=== PATIENT | female | born 1940 | race Two or more races ===

== ENCOUNTER 2016-08-14 11:46 | Inpatient (IN) | payer OTHER ==
--- NOTE | 2016-08-14 12:20 | PDOC ---
History of Present Illness <Sonny Kang - Last Filed: 08/14/16 15:49> - General History Source: Patient Exam Limitations: No Limitations - History of Present Illness Initial Comments: 08/14/16 13:31 The patient is a 75 year old female, with a significant past medical history of hypertension, hyperlipidemia, and breast cancer(left breast), who presents to the emergency department complaining of numbness and weakness to her left leg and left arm, and decreased appetite since yesterday. The patient describes her headache as an intermittent throbbing, sharp headache localized to the right side. The patient reports her numbness and weakness to her left side began yesterday and have not resolved. Patient states when she woke up this morning, she felt as if her head was out of balance. She reports calling her son, out of concern that her blood pressure was elevated. The patients son reports taking her blood pressure after arrival, which read 200/95. The patient reports paresthesias to her left arm, but denies chest pain, shortness of breath, diaphoresis, palpitations, lower extremity edema, or changes in vision. Patient reports nausea, but denies any abdominal pain, vomiting, diarrhea, or constipation. Patient reports she is typically able to ambulate normally. The patient denies any fever, chills, cough, or dizziness. The patient is on aspirin. Allergies: None reported. Past Surgical History: Left partial mastectomy, Left axillary dissection Social History: Non-smoker. Denies alcohol or drug use. PCP: Dr. Oleary <Dima Whaley - Last Filed: 08/14/16 15:51> - General Chief Complaint: Blood Pressure Problem Stated Complaint: HIGH BLOOD PRESSURE PROBLEM Time Seen by Provider: 08/14/16 12:14 NIH Stroke Scale - Last Known Well Date/Time & Onset Date Last Known Well: 08/13/16 Time Last Known Well: 16:00 - Initial Evaluation Level of consciousness: Alert Ask patient the month and their age: Answers both correctly Ask patient to open & close eyes; make fist and let go: Obeys both correctly Best gaze (horizontal eye movement): Normal Visual field testing: No visual field loss Facial paresis (Show teeth/raise eyebrows/close eyes tight): Normal symmetrical movement Motor Function: Left Arm: Normal Motor Function: Right Arm: Normal (extends arm 90 (or 45) degrees for 10 seconds without drift Motor Function: Left Leg: Drift Motor Function: Right Leg: Normal (extends leg 30 degrees for 5 seconds without drift) Limb Ataxia: No ataxia Sensory(Use pinprick test arms,legs,trunk,face/side to side): Normal Best language (Describe picture, name items, read sentences): No Aphasia Dysarthria (read several words): Normal articulation Extinction and Inattention: No abnormality - Total Score NIH Stroke Scale Score: 1 <Sonny Kang - Last Filed: 08/14/16 15:49> Past History - Past Medical History Anemia: No Asthma: No Cancer: Yes (left breast) Cardiac Disorders: No CVA: No COPD: Yes CHF: No Dementia: No Diabetes: No GI Disorders: No Disorders: No HTN: Yes Hypercholesterolemia: Yes Liver Disease: No Seizures: No Thyroid Disease: No - Surgical History Abdominal Surgery: No Appendectomy: No Cardiac Surgery: No Cholecystectomy: No Lung Surgery: No Neurologic Surgery: No Orthopedic Surgery: No - Psycho/Social/Smoking Cessation Hx Suicidal Ideation: No Smoking Status: No Smoking History: Never smoked Have you smoked in the past 12 months: No Number of Cigarettes Smoked Daily: 0 Hx Alcohol Use: No Drug/Substance Use Hx: No Substance Use Type: None Hx Substance Use Treatment: No <Sonny Kang - Last Filed: 08/14/16 15:49> <Dima Whaley - Last Filed: 08/14/16 15:51> - Past Medical History Allergies/Adverse Reactions: Allergies Allergy/AdvReac Type Severity Reaction Status Date / Time No Known Allergies Allergy Verified 08/14/16 12:02 Home Medications: Ambulatory Orders Amlodipine/Valsartan [Exforge 5-160 mg Tablet] 1 tab PO DAILY #0 tablet Aspirin [Aspir 81] 81 mg PO DAILY #0 tablet. 09/01/11 Calcium 250Mg/Vit-D 125 Units [Oscal 250 mg+D -] 1 each PO BID #0 tablet Rosuvastatin Calcium [Crestor] 10 mg PO DAILY #0 tablet 09/01/11 Nebivolol [Bystolic -] 5 mg PO DAILY 08/14/16 Review of Systems - Review of Systems Able to Perform ROS?: Yes Comments:: 08/14/16 13:33 CONSTITUTIONAL: Present: +loss of appetite, +elevated blood pressure Absent: fever, chills, diaphoresis, generalized weakness, malaise HEENT: Absent: rhinorrhea, nasal congestion, throat pain, throat swelling, difficulty swallowing, mouth swelling, ear pain, eye pain, visual Changes CARDIOVASCULAR: Absent: chest pain, syncope, palpitations, irregular heart rate, lightheadedness , peripheral edema RESPIRATORY: Absent: cough, shortness of breath, dyspnea with exertion, orthopnea, wheezing, stridor, hemoptysis GASTROINTESTINAL: Absent: abdominal pain, abdominal distension, nausea, vomiting, diarrhea, constipation, melena, hematochezia GENITOURINARY: Absent: dysuria, frequency, urgency, hesitancy, hematuria, flank pain, genital pain MUSCULOSKELETAL: Absent: myalgia, arthralgia, joint swelling SKIN: Absent: rash, itching, pallor HEMATOLOGIC/IMMUNOLOGIC: Absent: easy bleeding, easy bruising, lymphadenopathy, frequent infections ENDOCRINE: Absent: unexplained weight gain, unexplained weight loss, heat intolerance, cold intolerance NEUROLOGIC: Present: +paresthesias to the left arm, +numbness to he left arm and left leg, + headache Absent: focal weakness, dizziness, unsteady gait, seizure, mental status changes , bladder or bowel incontinence PSYCHIATRIC: Absent: anxiety, depression, suicidal or homicidal ideation, hallucinations. <Dima Whaley - Last Filed: 08/14/16 15:51> *Physical Exam - Vital Signs Last Vital Signs Temp Pulse Resp BP Pulse Ox 98.2 F 57 L 18 153/93 97 08/14/16 12:02 08/14/16 12:02 08/14/16 12:02 08/14/16 12:02 08/14/16 12:02 <Sonny Kang - Last Filed: 08/14/16 15:49> - Vital Signs Last Vital Signs Temp Pulse Resp BP Pulse Ox 98.2 F 57 L 18 153/93 97 08/14/16 12:02 08/14/16 12:02 08/14/16 12:02 08/14/16 12:02 08/14/16 12:02 - Physical Exam Comments: 08/14/16 13:32 GENERAL: Well developed, well nourished. Awake and alert. No acute distress. HEENT: Normocephalic, atraumatic. PERRLA, EOMI. No conjunctival pallor. Sclera are non- icteric. Moist mucous membranes. Oropharynx is clear. NECK: Supple. Full ROM. No JVD. Carotid pulses 2+ and symmetric, without bruits. No thyromegaly. No lymphadenopathy. CARDIOVASCULAR: Regular rate and rhythm. No murmurs, rubs, or gallops. Distal pulses are 2+ and symmetric. PULMONARY: No evidence of respiratory distress. Lungs clear to auscultation bilaterally. No wheezing, rales or rhonchi. ABDOMINAL: Soft. Non-tender. Non-distended. No rebound or guarding. No organomegaly. Normoactive bowel sounds. MUSCULOSKELETAL Normal range of motion at all joints. No bony deformities or tenderness. No CVA tenderness. EXTREMITIES: No cyanosis. No clubbing. No edema. No calf tenderness. SKIN: Warm and dry. Normal capillary refill. No rashes. No jaundice. NEUROLOGICAL: 4+ strength in the left lower extremity. Alert, awake, appropriate. Cranial nerves 2-12 intact. No deficits to light touch and temperature in face, upper extremities and lower extremities. No motor deficits in the in face, upper extremities. Normoreflexic in the upper and lower extremities. Normal speech. Toes are downgoing bilaterally. Gait is normal without ataxia. PSYCHIATRIC: Cooperative. Good eye contact. Appropriate mood and affect. <Dima Whaley - Last Filed: 08/14/16 15:51> Heart Score/ECG Review - ECG Intrepretation Comment:: 08/14/16 15:01 Normal sinus rhythm at 54, left axis deviation, left anterior hemiblock, late R- wave progression, no ST changes <Sonny Kang - Last Filed: 08/14/16 15:49> ED Treatment Course - LABORATORY CBC & Chemistry Diagram: 08/14/16 13:25 08/14/16 13:25 <Sonny Kang - Last Filed: 08/14/16 15:49> - LABORATORY CBC & Chemistry Diagram: 08/14/16 13:25 08/14/16 13:25 - RADIOLOGY Radiograph Interpretation: 08/14/16 14:04 EXAM: CXR INTERPRETED BY: Dr. Brock REVIEWED BY: Dr. Kang IMPRESSION: No evidence of pneumonia, CHF, pneumothorax. Limited evaluation of the lung parenchyma in the left retrocardiac region. EXAM: Head CT INTERPRETED BY: Dr. Brock REVIEWED BY: Dr. Kang IMPRESSION: No evidence of acute intracranial hemorrhage, edema, midline shift, mass effect, or skull fracture. No CT evidence of acute territorial infarction. <Dima Whaley - Last Filed: 08/14/16 15:51> Medical Decision Making - Medical Decision Making 08/14/16 12:55 The patient is well appearing and in nbo acute distress Symptoms onset yesterday at approximately 4pm She is not a candidate for TPA because she is well outside the 3 and 4.5 hour window NIHSS 1 She has mild LLE weakness and drift Will obtain labs, CT head 08/14/16 15:[address] reading no acute intracranial pathology Will admit for stroke work-up Clinical impression: Focal weakness Possible CVA Case discussed in detail with admitting provider including history, physical exam and ancillary studies. Admitting physician has assumed care for the patient, will follow all pending diagnostics and will complete the evaluation and treatment. A portion of this note was documented by scribe services under my direction. I have reviewed the details of the note, within reason, and agree with the documentation with the following case summary and management plan written by me. 08/14/16 15:49 <Sonny Kang - Last Filed: 08/14/16 15:49> - Medical Decision Making 08/14/16 15:41 First call placed to Dr. Heard at 15:40. Awaiting call back. <Dima Whaley - Last Filed: 08/14/16 15:51> *DC/Admit/Observation/Transfer - Discharge Dispostion Admit: Yes <Sonny Kang - Last Filed: 08/14/16 15:49> - Attestations Scribe Attestion: 08/14/16 13:37 Documentation prepared by Dima Whaley, acting as director medical surgical for Sonny Kang MD. <Dima Whaley - Last Filed: 08/14/16 15:51> Diagnosis at time of Disposition: Weakness - Referrals Referrals: Garrett Oleary [Primary Care Provider] -
[2016-08-14] MEDS: SODIUM CHLORIDE 1,000 ML IV SCH ×2 (13:05→20:27)
[2016-08-14 13:35] LABS: BASOPHIL 1.1 % (0-2.0); EOSINOPHIL 2.4 % (0-4.5); MCH 29.1 pg (25.7-33.7); MCHC 32.4 g/dl (32.0-36.0); MEAN CELL VOLUME 89.9 fl (80-96); MEAN PLT VOLUME 8.6 fl (7.5-11.1); NEUTROPHILS 39.9 % (42.8-82.8); PLATELET COUNT 195 K/MM3 (134-434); RDW 14.7 % (11.6-15.6); WHITE BLOOD COUNT 4.1 K/mm3 (4.0-10.0)
[2016-08-14 13:46] LABS: URINE APPEARANCE CLEAR; URINE BILIRUBIN NEGATIVE (NEGATIVE); URINE BLOOD NEGATIVE (NEGATIVE); URINE COLOR COLORLESS; URINE GLUCOSE (UA) NEGATIVE (NEGATIVE); URINE KETONE NEGATIVE (NEGATIVE); URINE LEUK ESTERASE NEGATIVE (NEGATIVE); URINE NITRITE NEGATIVE (NEGATIVE); URINE PROTEIN NEGATIVE (NEGATIVE); URINE UROBILINOGEN NEGATIVE E.U./dl (0.2-1.0)
[2016-08-14 14:04] LABS: INR 1.04 (0.82-1.09); PROTHROMBIN TIME (PATIENT) 11.5 SEC (9.98-11.88)
[2016-08-14 14:26] LABS: ALBUMIN 3.6 g/dl (3.4-5.0); ANION GAP 4 (8-16); BILIRUBIN,TOTAL 0.3 mg/dL (0.2-1.0); CALCIUM 8.9 mg/dL (8.5-10.1); CO2 29 mmol/L (21-32); CREATININE 0.9 mg/dL (0.55-1.02); GLUCOSE,RANDOM 111 mg/dL (74-106); LDL CHOLESTEROL (ONLY SJRH) 41 mg/dL (5-100); SGOT/AST 22 U/L (15-37); SGPT/ALT 32 U/L (12-78)
[2016-08-14 14:28] LABS: ALK PHOS 69 U/L (45-117); TOT PROT 7.8 g/dl (6.4-8.2); TROPONIN I < 0.02 ng/ml (0.00-0.05)
[2016-08-14 14:30] LABS: CHOLESTEROL 100 mg/dL (50-200)
[2016-08-14] MEDS ORDERED: ASPIRIN 81 MG CHEWABLE TABLETS PO ONE (15:49)
[2016-08-14] MEDS ORDERED: ASPIRIN 81 MG CHEWABLE TABLETS ONE (16:07)
[2016-08-14 19:03] VITALS: BMI 30.5
--- NOTE | 2016-08-14 21:45 | CONSULT ---
Consult - text type - Consultation Consultation Note: NEUROLOGY CONSULTATION is greatly appreciated: This 75 yo RH woman lives with her sons and their families. Her daughter is at the bedside and aides in translation from Nepalese. PMH sig for HTN, High CVhol and left breast Ca. Maintained on amlodipine, valsartan, ASA, crestor and nebivolol. Episodic headaches in the past usually Right temporal throbbing. Daughter also has headaches. The patient has had right sided headaches, waxing and waning over the last three days. Yesterday, around 3 PM, the patient developed a typical Right sided headache with numbness of the ledt arm but went about her affairs, When the symptoms recurred this morning and also involved the left leg she came to the ED where BP was noted to be 200/95. No change in gait or vision. Now, headache and paresthesiae have resolved CT of head (reviewed by me): Mild atrophy. Probably normal for age. JOSEE: BP 140/80. Cor reg 76. No head trauma. No bruits. NEUROLOGICAL: MS/speech: Normal CN II-XII: Normal Motor: No drift or tremor. Normal strength, tone and bulk. Normal reflexes. Toes downgoing Coord: No FTN dystaxia Sensory: Normal. Romberg neg Gait: Normal IMP: Normal Neurological Exam. Most likely Complicated migraine headache. Cannot exclude hypertensive headache and lacunar infarction. SUGGEST: Continue BP control especially nebivolol which is a migraine prophylactic. Encourage compliance. Continue ASA. MRI of brain and MR angio of the carotids (or duplex doppler). Check ESR, CRP to R/O temporal arteritis. Thank you very much, Sergey Fajardo MD
[2016-08-14] MEDS: CALCIUM 250MG/VIT-D 125 UNITS 1 COMBO TABLET PO SCH (21:49)
[2016-08-14 22:51] LABS: TROPONIN I < 0.02 ng/ml (0.00-0.05)
[2016-08-15 08:01] LABS: BASOPHIL 1.4 % (0-2.0); EOSINOPHIL 3.1 % (0-4.5); MCH 29.5 pg (25.7-33.7); MCHC 33.1 g/dl (32.0-36.0); MEAN PLT VOLUME 9.1 fl (7.5-11.1); NEUTROPHILS 36.3 % (42.8-82.8); PLATELET COUNT 194 K/MM3 (134-434); RDW 14.6 % (11.6-15.6)
[2016-08-15 08:31] LABS: ALBUMIN 3.3 g/dl (3.4-5.0); ALK PHOS 64 U/L (45-117); ANION GAP 5 (8-16); BILIRUBIN,TOTAL 0.4 mg/dL (0.2-1.0); CALCIUM 8.6 mg/dL (8.5-10.1); CO2 28 mmol/L (21-32); CREATININE 0.9 mg/dL (0.55-1.02); GLUCOSE,RANDOM 104 mg/dL (74-106); SGOT/AST 22 U/L (15-37); SGPT/ALT 31 U/L (12-78); TOT PROT 7.2 g/dl (6.4-8.2); TROPONIN I < 0.02 ng/ml (0.00-0.05)
[2016-08-15] MEDS ORDERED: PT OWN MED DRAWER 7, Y5N ONE (08:31)
[2016-08-15] MEDS: VALSARTAN 160 MG TABLET (UD) PO SCH (09:08)
[2016-08-15] MEDS: NEBIVOLOL 5 MG TABLET (FP) PO SCH (09:09)
[2016-08-15] MEDS: CALCIUM 250MG/VIT-D 125 UNITS 1 COMBO TABLET PO SCH ×2 (09:09→21:23)
[2016-08-15] MEDS: ASPIRIN COATED 81 MG TABLET.EC PO SCH (09:09)
[2016-08-15] MEDS: amLODIPine BESYLATE 5 MG TABLET (FP) PO SCH (09:09)
[2016-08-15] MEDS ORDERED: PATIENT'S OWN MEDICATION (NON-FORMULARY) (Amlodipine/Valsartan [Exforge 5-160 Mg Tablet] 1 PO SCH (10:00)
--- NOTE | 2016-08-15 10:02 | EKG ---
Test Reason : Blood Pressure : / mmHG Vent. Rate : 053 BPM Atrial Rate : 053 BPM P-R Int : 186 ms QRS Dur : 090 ms QT Int : 424 ms P-R-T Axes : 033 -29 027 degrees QTc Int : 397 ms SINUS BRADYCARDIA POOR R WAVE PROGRESSION Confirmed by NATHANAEL ERNANDEZ MD ([id number]) on 08/15/2016 10:02:19 AM Referred By: Confirmed By:NATHANAEL ERNANDEZ MD
--- NOTE | 2016-08-15 16:13 | HP ---
Admitting History and Physical - Primary Care Physician PCP: Scarlett Heard - Admission Chief Complaint: R/O ACUTE CVA History of Present Illness: The patient is a 75 year old female, with a significant past medical history of hypertension, hyperlipidemia, and breast cancer(left breast), who presents to the emergency department complaining of numbness and weakness to her left leg and left arm, and decreased appetite since yesterday. The patient describes her headache as an intermittent throbbing, sharp headache localized to the right side. The patient reports her numbness and weakness to her left side began yesterday and have not resolved. Patient states when she woke up this morning, she felt as if her head was out of balance. She reports calling her son, out of concern that her blood pressure was elevated. The patients son reports taking her blood pressure after arrival, which read 200/95. The patient reports paresthesias to her left arm, but denies chest pain, shortness of breath, diaphoresis, palpitations, lower extremity edema, or changes in vision. Patient reports nausea, but denies any abdominal pain, vomiting, diarrhea, or constipation. Patient reports she is typically able to ambulate normally. The patient denies any fever, chills, cough, or dizziness. The patient is on aspirin. History Source: Patient, Medical Record - Past Medical History ...: No - Smoking History Smoking history: Never smoked Have you smoked in the past 12 months: No Aproximately how many cigarettes per day: 0 - Alcohol/Substance Use Hx Alcohol Use: No Home Medications - Allergies Allergies/Adverse Reactions: Allergies Allergy/AdvReac Type Severity Reaction Status Date / Time No Known Allergies Allergy Verified 08/14/16 12:02 - Home Medications Home Medications: Ambulatory Orders Amlodipine/Valsartan [Exforge 5-160 mg Tablet] 1 tab PO DAILY #0 tablet Aspirin [Aspir 81] 81 mg PO DAILY #0 tablet. 09/01/11 Calcium 250Mg/Vit-D 125 Units [Oscal 250 mg+D -] 1 each PO BID #0 tablet Rosuvastatin Calcium [Crestor] 10 mg PO DAILY #0 tablet 09/01/11 Nebivolol [Bystolic -] 5 mg PO DAILY 08/14/16 Review of Systems - Review of Systems Constitutional: reports: Weakness Eyes: reports: Blurred Vision HENT: reports: No Symptoms Neck: reports: No Symptoms Cardiovascular: reports: No Symptoms Respiratory: reports: No Symptoms Gastrointestinal: reports: No Symptoms Genitourinary: reports: No Symptoms Musculoskeletal: reports: Muscle Weakness Integumentary: reports: No Symptoms Neurological: reports: Parasthesia, Pre-Existing Deficit, Weakness Endocrine: reports: No Symptoms Hematology/Lymphatic: reports: No Symptoms Psychiatric: reports: No Symptoms Physical Examination Vital Signs: Vital Signs Temperature 98 F 08/15/16 15:33 Pulse Rate 51 L 08/15/16 15:33 Respiratory Rate 18 08/15/16 15:33 Blood Pressure 182/67 08/15/16 15:33 O2 Sat by Pulse Oximetry (%) 96 08/15/16 09:00 Constitutional: Yes: Mild Distress Eyes: Yes: WNL HENT: Yes: WNL Neck: Yes: WNL Cardiovascular: Yes: WNL Respiratory: Yes: WNL Gastrointestinal: Yes: WNL Renal/: Yes: WNL Musculoskeletal: Yes: Muscle Weakness Extremities: Yes: WNL Edema: Yes Edema: LLE: Trace, RLE: Trace Peripheral Pulses WNL: Yes Integumentary: Yes: WNL Wound/Incision: Yes: Clean/Dry Neurological: Yes: Unsteady Gait, Weakness ...Motor Strength: LLE, RLE Psychiatric: Yes: Other Labs: CBC, BMP 08/15/16 06:22 08/15/16 06:22 Imaging - Results Cat Scan: Report Reviewed Problem List - Problems (1) Weakness Code(s): R53.1 - WEAKNESS (2) Hypertension Code(s): I10 - ESSENTIAL (PRIMARY) HYPERTENSION Qualifiers: Hypertension type: essential hypertension Qualified Code(s): I10 - Essential (primary) hypertension (3) CVA (cerebral vascular accident) Assessment/Plan: THIS IS A RULE OUT CVA Code(s): I63.9 - CEREBRAL INFARCTION, UNSPECIFIED Qualifiers: CVA mechanism: unspecified Qualified Code(s): I63.9 - Cerebral infarction, unspecified Assessment/Plan NEURO CODE VASQUEZ CALLED CT HEAD NO ACUTE CHNAGES MRI BRAIN PENDING WEAKNESS/PARESTHESIA NEUROLOGY EVAL LIPID PROFILE ASA PT EVAL NEURO CHECKS FALL PRECAUTIONS
[2016-08-15] MEDS ORDERED: hydrALAZINE HCL 25 MG TABLET (FP) PO ONE (17:30)
[2016-08-15] MEDS: ROSUVASTATIN CA 10 MG TABLET (FP) PO SCH (21:22)
[2016-08-15] MEDS: hydrALAZINE HCL 25 MG TABLET (FP) PO SCH (21:23)
[2016-08-16] MEDS: CALCIUM 250MG/VIT-D 125 UNITS 1 COMBO TABLET PO SCH ×2 (09:23→22:02)
[2016-08-16] MEDS: VALSARTAN 160 MG TABLET (UD) PO SCH (09:23)
[2016-08-16] MEDS: amLODIPine BESYLATE 5 MG TABLET (FP) PO SCH (09:23)
[2016-08-16] MEDS: NEBIVOLOL 5 MG TABLET (FP) PO SCH (09:23)
[2016-08-16] MEDS: ASPIRIN COATED 81 MG TABLET.EC PO SCH (09:23)
[2016-08-16] MEDS: hydrALAZINE HCL 25 MG TABLET (FP) PO SCH ×2 (09:23→22:02)
--- NOTE | 2016-08-16 10:09 | PN ---
[id number] Besylate (Norvasc -) 5 mg PO DAILY [facility] Last Admin: 08/16/16 09:23 Dose: 5 mg Aspirin (Ecotrin -) 81 mg PO DAILY [facility] Last Admin: 08/16/16 09:23 Dose: 81 mg Calcium/Vitamin D (Oscal 250 Mg+D -) 1 tab PO BID [facility] Last Admin: 08/16/16 09:23 Dose: 1 tab Hydralazine HCl (Apresoline -) 25 mg PO BID [facility] Last Admin: 08/16/16 09:23 Dose: 25 mg Nebivolol (Bystolic -) 5 mg PO DAILY [facility] Last Admin: 08/16/16 09:23 Dose: 5 mg Rosuvastatin Calcium (Crestor -) 10 mg PO HS [facility] Last Admin: 08/15/16 21:22 Dose: 10 mg Valsartan (Diovan -) 160 mg PO DAILY [facility] Last Admin: 08/16/16 09:23 Dose: 160 mg - Objective Vital Signs: Vital Signs Temperature 98.1 F 08/16/16 06:00 Pulse Rate 45 L 08/16/16 06:00 Respiratory Rate 20 08/16/16 06:00 Blood Pressure 151/73 08/16/16 06:00 O2 Sat by Pulse Oximetry (%) 97 08/15/16 21:00 Constitutional: Yes: Calm Neck: Yes: WNL Cardiovascular: Yes: WNL Respiratory: Yes: WNL Gastrointestinal: Yes: WNL Edema: No Labs: CBC, BMP 08/15/16 06:22 08/15/16 06:22 INR, PTT INR 1.04 (0.82-1.09) 08/14/16 13:25 Problem List - Problems (1) CVA (cerebral vascular accident) Code(s): I63.9 - CEREBRAL INFARCTION, UNSPECIFIED Qualifiers: CVA mechanism: unspecified Qualified Code(s): I63.9 - Cerebral infarction, unspecified (2) Hypertension Code(s): I10 - ESSENTIAL (PRIMARY) HYPERTENSION Qualifiers: Hypertension type: essential hypertension Qualified Code(s): I10 - Essential (primary) hypertension (3) Weakness Code(s): R53.1 - WEAKNESS Assessment/Plan (1) Weakness Code(s): R53.1 - WEAKNESS (2) Hypertension Code(s): I10 - ESSENTIAL (PRIMARY) HYPERTENSION Qualifiers: Hypertension type: essential hypertension Qualified Code(s): I10 - Essential (primary) hypertension (3) CVA (cerebral vascular accident) Assessment/Plan: THIS IS A RULE OUT CVA Code(s): I63.9 - CEREBRAL INFARCTION, UNSPECIFIED Qualifiers: CVA mechanism: unspecified Qualified Code(s): I63.9 - Cerebral infarction, unspecified Assessment/Plan NEURO CODE VASQUEZ CALLED CT HEAD NO ACUTE CHNAGES MRI BRAIN PENDING WEAKNESS/PARESTHESIA NEUROLOGY EVAL -> LIKELY COMPLEX MIGRAINE LIPID PROFILE ASA PT EVAL NEURO CHECKS FALL PRECAUTIONS F/U MRI BRAIN REPORT DISCHARGE PLANNING [employer] FM
[2016-08-16] MEDS ORDERED: amLODIPine BESYLATE 5 MG TABLET (FP) PO ONE (12:02)
--- NOTE | 2016-08-16 16:55 | CON.CARD ---
Consult Consult Specialty:: Cardiology Referred by:: Orquidea Reason for Consultation:: Hypertension management - History of Present Illness Chief Complaint: Numbness and weakness to her left leg and left arm, and decreased appetite. Blood pressure difficult to control. Head aches. History of Present Illness: This is a 75 year old female, with a PMH of HTN, HLD, and breast CA. She presented to the ER complaining of numbness and weakness to her left leg and left arm, and decreased appetite for about one day prior to admission. She also complained of headaches which she described as sharp and throbbing, mostly on the right side, accompanied by nausea. She also has been complaining of being "out of balance". BP at home was reportedly 200/95 mmHg. 08/16/16 Presently comfortable and in no acute distress. - Past Medical History ...: No - Alcohol/Substance Use Hx Alcohol Use: No - Smoking History Smoking history: Never smoked Have you smoked in the past 12 months: No Aproximately how many cigarettes per day: 0 Home Medications - Allergies Allergies/Adverse Reactions: Allergies Allergy/AdvReac Type Severity Reaction Status Date / Time No Known Allergies Allergy Verified 08/14/16 12:02 - Home Medications Home Medications: Ambulatory Orders Amlodipine/Valsartan [Exforge 5-160 mg Tablet] 1 tab PO DAILY #0 tablet Aspirin [Aspir 81] 81 mg PO DAILY #0 tablet. 09/01/11 Calcium 250Mg/Vit-D 125 Units [Oscal 250 mg+D -] 1 each PO BID #0 tablet Rosuvastatin Calcium [Crestor] 10 mg PO DAILY #0 tablet 09/01/11 Nebivolol [Bystolic -] 5 mg PO DAILY 08/14/16 Review of Systems Unable to obtain ROS, reason: As per HPI Vital Signs: Vital Signs Temperature 98.5 F 08/16/16 14:00 Pulse Rate 50 L 08/16/16 14:00 Respiratory Rate 18 08/16/16 14:00 Blood Pressure 177/75 08/16/16 14:00 O2 Sat by Pulse Oximetry (%) 97 08/16/16 10:00 - Other Data Labs, Other Data: CBC, BMP 08/15/16 06:22 08/15/16 06:22 INR, PTT INR 1.04 (0.82-1.09) 08/14/16 13:25 Imaging - Results Chest X-ray: Report Reviewed (Cardiomegally but no reports of CHF) Cat Scan: Report Reviewed (Heas CT unremarkable) EKG: Report Reviewed (Sinus bradycardia at 53 BPM, no acute changes.) Assessment/Plan [facility] *LIVE* History & Physical Patient Name: CRESCENCIO HONG Date of : 1940 Patient Status: Inpatient Attending Provider: Scarlett Heard Date: 08/15/16 16:10 Initialization Date: 08/15/16 16:10 Admitting History and Physical - Primary Care Physician PCP: Scarlett Heard - Admission Chief Complaint: R/O ACUTE CVA History of Present Illness: The patient is a 75 year old female, with a significant past medical history of hypertension, hyperlipidemia, and breast cancer(left breast), who presents to the emergency department complaining of numbness and weakness to her left leg and left arm, and decreased appetite since yesterday. The patient describes her headache as an intermittent throbbing, sharp headache localized to the right side. The patient reports her numbness and weakness to her left side began yesterday and have not resolved. Patient states when she woke up this morning, she felt as if her head was out of balance. She reports calling her son, out of concern that her blood pressure was elevated. The patients son reports taking her blood pressure after arrival, which read 200/95. The patient reports paresthesias to her left arm, but denies chest pain, shortness of breath, diaphoresis, palpitations, lower extremity edema, or changes in vision. Patient reports nausea, but denies any abdominal pain, vomiting, diarrhea, or constipation. Patient reports she is typically able to ambulate normally. The patient denies any fever, chills, cough, or dizziness. The patient is on aspirin. History Source: Patient, Medical Record - Past Medical History ...: No - Smoking History Smoking history: Never smoked Have you smoked in the past 12 months: No Aproximately how many cigarettes per day: 0 - Alcohol/Substance Use Hx Alcohol Use: No Home Medications - Allergies Allergies/Adverse Reactions: Allergies Allergy/AdvReac Type Severity Reaction Status Date / Time No Known Allergies Allergy Verified 08/14/16 12:02 - Home Medications Home Medications: Ambulatory Orders Amlodipine/Valsartan [Exforge 5-160 mg Tablet] 1 tab PO DAILY #0 tablet Aspirin [Aspir 81] 81 mg PO DAILY #0 tablet. 09/01/11 Calcium 250Mg/Vit-D 125 Units [Oscal 250 mg+D -] 1 each PO BID #0 tablet Rosuvastatin Calcium [Crestor] 10 mg PO DAILY #0 tablet 09/01/11 Nebivolol [Bystolic -] 5 mg PO DAILY 08/14/16 Review of Systems - Review of Systems Constitutional: reports: Weakness Eyes: reports: Blurred Vision HENT: reports: No Symptoms Neck: reports: No Symptoms Cardiovascular: reports: No Symptoms Respiratory: reports: No Symptoms Gastrointestinal: reports: No Symptoms Genitourinary: reports: No Symptoms Musculoskeletal: reports: Muscle Weakness Integumentary: reports: No Symptoms Neurological: reports: Parasthesia, Pre-Existing Deficit, Weakness Endocrine: reports: No Symptoms Hematology/Lymphatic: reports: No Symptoms Psychiatric: reports: No Symptoms Physical Examination Vital Signs: Vital Signs Temperature 98 F 08/15/16 15:33 Pulse Rate 51 L 08/15/16 15:33 Respiratory Rate 18 08/15/16 15:33 Blood Pressure 182/67 08/15/16 15:33 O2 Sat by Pulse Oximetry (%) 96 08/15/16 09:00 Constitutional: Yes: Mild Distress Eyes: Yes: WNL HENT: Yes: WNL Neck: Yes: WNL Cardiovascular: Yes: WNL Respiratory: Yes: WNL Gastrointestinal: Yes: WNL Renal/: Yes: WNL Musculoskeletal: Yes: Muscle Weakness Extremities: Yes: WNL Edema: Yes Edema: LLE: Trace, RLE: Trace Peripheral Pulses WNL: Yes Integumentary: Yes: WNL Wound/Incision: Yes: Clean/Dry Neurological: Yes: Unsteady Gait, Weakness ...Motor Strength: LLE, RLE Psychiatric: Yes: Other Labs: CBC, BMP 08/15/16 06:22 08/15/16 06:22 Imaging - Results Cat Scan: Report Reviewed Problem List - Problems (1) Weakness Code(s): R53.1 - WEAKNESS (2) Hypertension Code(s): I10 - ESSENTIAL (PRIMARY) HYPERTENSION Qualifiers: Hypertension type: essential hypertension Qualified Code(s): I10 - Essential (primary) hypertension (3) CVA (cerebral vascular accident) Assessment/Plan: THIS IS A RULE OUT CVA Code(s): I63.9 - CEREBRAL INFARCTION, UNSPECIFIED Qualifiers: CVA mechanism: unspecified Qualified Code(s): I63.9 - Cerebral infarction, unspecified Assessment/Plan NEURO CODE VASQUEZ CALLED CT HEAD NO ACUTE CHNAGES MRI BRAIN PENDING WEAKNESS/PARESTHESIA NEUROLOGY EVAL LIPID PROFILE ASA PT EVAL NEURO CHECKS FALL PRECAUTIONS
--- NOTE | 2016-08-16 17:13 | CON.CARD ---
Consult Consult Specialty:: Cardiology Referred by:: Orquidea Reason for Consultation:: Hypertensive management - History of Present Illness Chief Complaint: Numbness and weakness to her left leg and left arm, and decreased appetite. Blood pressure difficult to control. Head aches. History of Present Illness: This is a 75 year old female, with a PMH of HTN, HLD, and breast CA. She presented to the ER complaining of numbness and weakness to her left leg and left arm, and decreased appetite for about one day prior to admission. She also complained of headaches which she described as sharp and throbbing, mostly on the right side, accompanied by nausea. She also has been complaining of being "out of balance". BP at home was reportedly 200/95 mmHg. 08/16/16 Presently comfortable and in no acute distress. - History Source History Provided By: Family Member - Past Medical History ...: No - Alcohol/Substance Use Hx Alcohol Use: No - Smoking History Smoking history: Never smoked Have you smoked in the past 12 months: No Aproximately how many cigarettes per day: 0 Home Medications - Allergies Allergies/Adverse Reactions: Allergies Allergy/AdvReac Type Severity Reaction Status Date / Time No Known Allergies Allergy Verified 08/14/16 12:02 - Home Medications Home Medications: Ambulatory Orders Amlodipine/Valsartan [Exforge 5-160 mg Tablet] 1 tab PO DAILY #0 tablet Aspirin [Aspir 81] 81 mg PO DAILY #0 tablet. 09/01/11 Calcium 250Mg/Vit-D 125 Units [Oscal 250 mg+D -] 1 each PO BID #0 tablet Rosuvastatin Calcium [Crestor] 10 mg PO DAILY #0 tablet 09/01/11 Nebivolol [Bystolic -] 5 mg PO DAILY 08/14/16 Review of Systems Unable to obtain ROS, reason: As per HPI Vital Signs: Vital Signs Temperature 98.5 F 08/16/16 14:00 Pulse Rate 50 L 08/16/16 14:00 Respiratory Rate 18 08/16/16 14:00 Blood Pressure 177/75 08/16/16 14:00 O2 Sat by Pulse Oximetry (%) 97 08/16/16 10:00 Respiratory: Yes: CTA Bilaterally Gastrointestinal: Yes: Normal Bowel Sounds, Soft Cardiovascular: Yes: Regular Rate and Rhythm JVD: No Heart Sounds: Yes: S1, S2 (NO murmurs) Edema: No Peripheral Pulses WNL: (Intact) - Other Data Labs, Other Data: CBC, BMP 08/15/16 06:22 08/15/16 06:22 INR, PTT INR 1.04 (0.82-1.09) 08/14/16 13:25 Sinus bradycardia at 53 BPM with normal intervals, normal axis and no acute changes. Imaging - Results Chest X-ray: Report Reviewed Assessment/Plan HTN BP 177/75 mmHg on Diovan 160 mg and Amlodipine 10 mg daily. Would add a thiazide diuretic at this time such as Chlorthalidone 25 mg daily. Bradycardia Heart rate is 50 BPM Avoid beta blockers and any medications that can slow HR Heart rate so far on telemetry varied from 45 BPM to 67 BPM, keep monitored for now.
[2016-08-16] MEDS ORDERED: SENNOSIDES 8.6MG TABLET (FP) PO SCH (22:00)
[2016-08-16] MEDS: POLYETHYLENE GLYCOL 3350 119 GM BTL PO SCH (22:01)
[2016-08-16] MEDS: ROSUVASTATIN CA 10 MG TABLET (FP) PO SCH (22:02)
[2016-08-17 07:56] LABS: BASOPHIL 1.2 % (0-2.0); EOSINOPHIL 2.7 % (0-4.5); MCH 29.5 pg (25.7-33.7); MCHC 33.1 g/dl (32.0-36.0); MEAN CELL VOLUME 89.2 fl (80-96); MEAN PLT VOLUME 8.8 fl (7.5-11.1); NEUTROPHILS 36.3 % (42.8-82.8); PLATELET COUNT 220 K/MM3 (134-434); RDW 14.6 % (11.6-15.6); WHITE BLOOD COUNT 5.1 K/mm3 (4.0-10.0)
[2016-08-17 08:22] LABS: ALBUMIN 3.5 g/dl (3.4-5.0); BILIRUBIN,TOTAL 0.5 mg/dL (0.2-1.0); COCKROFT - GAULT 56.27; TOT PROT 7.6 g/dl (6.4-8.2)
[2016-08-17] MEDS ORDERED: PT OWN MED DRAWER 7, Y5N ONE (08:41)
[2016-08-17] MEDS: ASPIRIN COATED 81 MG TABLET.EC PO SCH (09:03)
[2016-08-17] MEDS: NEBIVOLOL 5 MG TABLET (FP) PO SCH (09:03)
[2016-08-17] MEDS: CALCIUM 250MG/VIT-D 125 UNITS 1 COMBO TABLET PO SCH (09:04)
[2016-08-17] MEDS: POLYETHYLENE GLYCOL 3350 119 GM BTL PO SCH (09:04)
[2016-08-17] MEDS: hydrALAZINE HCL 25 MG TABLET (FP) PO SCH (09:04)
[2016-08-17] MEDS: VALSARTAN 160 MG TABLET (UD) PO SCH (09:04)
[2016-08-17] MEDS ORDERED: amLODIPine BESYLATE 10 MG TABLET (FP) PO SCH (10:00)
--- NOTE | 2016-08-17 14:07 | DS ---
Physical Examination Vital Signs: Vital Signs Temperature 98.7 F 08/17/16 10:00 Pulse Rate 55 L 08/17/16 10:00 Respiratory Rate 20 08/17/16 10:00 Blood Pressure 133/57 08/17/16 10:00 O2 Sat by Pulse Oximetry (%) 95 08/17/16 10:00 Findings/Remarks: HAD D/W FAMILY & PATIENT Constitutional: Yes: Calm Neck: Yes: WNL Cardiovascular: Yes: WNL Respiratory: Yes: WNL Gastrointestinal: Yes: WNL Edema: No Labs: CBC, BMP 08/17/16 06:10 08/17/16 06:10 Discharge Summary Reason For Visit: WEAKNESS; STROKE Current Active Problems CVA (cerebral vascular accident) (Acute) Weakness (Acute) Hospital Course: (1) Weakness Code(s): R53.1 - WEAKNESS (2) Hypertension Code(s): I10 - ESSENTIAL (PRIMARY) HYPERTENSION Qualifiers: Hypertension type: essential hypertension Qualified Code(s): I10 - Essential (primary) hypertension (3) CVA (cerebral vascular accident) Assessment/Plan: THIS IS A RULE OUT CVA Code(s): I63.9 - CEREBRAL INFARCTION, UNSPECIFIED Qualifiers: CVA mechanism: unspecified Qualified Code(s): I63.9 - Cerebral infarction, unspecified Assessment/Plan NEURO CODE VASQUEZ CALLED CT HEAD NO ACUTE CHNAGES MRI/MRA NEG WEAKNESS/PARESTHESIA NEUROLOGY EVAL -> LIKELY COMPLEX MIGRAINE LIPID PROFILE ASA PT EVAL NEURO CHECKS FALL PRECAUTIONS DISCHARGE W[employer] FM - Instructions Referrals: Garrett Oleary [Primary Care Provider] - - Home Medications Comprehensive Discharge Medication List: Ambulatory Orders Amlodipine/Valsartan [Exforge 5-160 mg Tablet] 1 tab PO DAILY #0 tablet Aspirin [Aspir 81] 81 mg PO DAILY #0 tablet. 09/01/11 Calcium 250Mg/Vit-D 125 Units [Oscal 250 mg+D -] 1 each PO BID #0 tablet Rosuvastatin Calcium [Crestor] 10 mg PO DAILY #0 tablet 09/01/11 Nebivolol [Bystolic -] 5 mg PO DAILY 08/14/16
[2016-08-17 18:38] VITALS: BP 142/63; PULSE 47; TEMP 98.1
== END 2016-08-17 18:30 | disposition home or self-care (01) | DRG 54 ==
LOC: JER 11:46 → JERBED 15:47 → J4S 17:35
PROVIDERS: ADMIT Family Medicine; ATTEND Family Medicine
DX: G43.109 Migraine with aura, not intractable, without status migrainosus (principal); I10 Essential (primary) hypertension; R20.2 Paresthesia of skin; R26.81 Unsteadiness on feet; J44.9 Chronic obstructive pulmonary disease, unspecified; E78.00 Pure hypercholesterolemia, unspecified; Z85.3 Personal history of malignant neoplasm of breast
CPT/HCPCS: 36415; 70450-TC; 70547-TC; 70551-TC; 71010-TC; 80053; 81003; 82465; 82550; 83718; 83721; 84478; 84484; 85025; 85610; 85651; 86140; 86850; 86900; 86901; 93005; 93010; 97116-GP; 97161-GP; 99282-25

== ENCOUNTER 2017-07-08 11:23 | Emergency (ER) | payer OTHER ==
[2017-07-08 11:33] VITALS: BMI 29.8
[2017-07-08 12:56] LABS: BASO % 1.3 % (0-2.0); EOS % 1.7 % (0-4.5); HEMOGLOBIN 15.1 GM/dL (10.7-15.3); LYMPH % 38.8 % (8-40); MCH 29.8 pg (25.7-33.7); MCHC 32.9 g/dl (32.0-36.0); MEAN CELL VOLUME 90.7 fl (80-96); MONO % 10.4 % (3.8-10.2); NEUT % 47.8 % (42.8-82.8); PLATELET COUNT 207 K/MM3 (134-434); RBC 5.07 M/mm3 (3.60-5.2); RDW 14.5 % (11.6-15.6); WHITE BLOOD COUNT 4.8 K/mm3 (4.0-10.0)
[2017-07-08 13:25] LABS: ALBUMIN 3.7 g/dl (3.4-5.0); ANION GAP 10 (8-16); BILIRUBIN,TOTAL 0.3 mg/dL (0.2-1.0); BLOOD UREA NITROGEN 17 mg/dL (7-18); CALCIUM 9.3 mg/dL (8.5-10.1); CHLORIDE 105 mmol/L (98-107); CO2 26 mmol/L (21-32); CREATININE 1.1 mg/dL (0.55-1.02); GLUCOSE,RANDOM 128 mg/dL (74-106); SGPT/ALT 37 U/L (12-78); SODIUM 141 mmol/L (136-145); TOT PROT 7.8 g/dl (6.4-8.2)
--- NOTE | 2017-07-08 13:25 | PDOC ---
History of Present Illness - General Chief Complaint: Blood Pressure Problem Stated Complaint: SOB Time Seen by Provider: 07/08/17 12:42 History Source: Patient, Family - History of Present Illness Associated Symptoms: reports: weakness. denies: chest pain, diaphoresis, fever/ chills, headaches, nausea/vomiting, shortness of breath Past History - Past Medical History Allergies/Adverse Reactions: Allergies Allergy/AdvReac Type Severity Reaction Status Date / Time No Known Allergies Allergy Verified 07/08/17 11:28 Home Medications: Ambulatory Orders Aspirin [Aspir 81] 81 mg PO DAILY #0 tablet. 09/01/11 Calcium 250Mg/Vit-D 125 Units [Oscal 250 mg+D -] 1 each PO BID #0 tablet Valsartan [Diovan] 160 mg PO DAILY #30 tablet 08/17/16 Nebivolol [Bystolic -] 10 mg PO DAILY 07/08/17 hydrALAZINE HCL [Apresoline -] 50 mg PO BID 07/08/17 Anemia: No Asthma: No Cancer: Yes (left breast) Cardiac Disorders: No CVA: No COPD: Yes CHF: No Dementia: No Diabetes: No GI Disorders: No Disorders: No HTN: Yes Hypercholesterolemia: Yes Liver Disease: No Seizures: No Thyroid Disease: No - Surgical History Abdominal Surgery: No Appendectomy: No Cardiac Surgery: No Cholecystectomy: No Lung Surgery: No Neurologic Surgery: No Orthopedic Surgery: No - Immunization History Immunization Up to Date: Yes - Suicide/Smoking/Psychosocial Hx Smoking Status: No Smoking History: Never smoked Have you smoked in the past 12 months: No Number of Cigarettes Smoked Daily: 0 Information on smoking cessation initiated: No Hx Alcohol Use: No Drug/Substance Use Hx: No Substance Use Type: None Hx Substance Use Treatment: No Review of Systems - Review of Systems Constitutional: Yes: Weakness. No: Chills, Fever Respiratory: No: Shortness of Breath Cardiac (ROS): No: Chest Pain, Lightheadedness, Palpitations, Syncope Neurological: No: Headache, Dizziness *Physical Exam - Vital Signs Last Vital Signs Temp Pulse Resp BP Pulse Ox 98.2 F 59 L 18 208/93 97 07/08/17 11:28 07/08/17 13:22 07/08/17 13:22 07/08/17 13:22 07/08/17 13:22 - Physical Exam General Appearance: Yes: Appropriately Dressed. No: Apparent Distress HEENT: positive: Normal Voice Neck: positive: Supple Respiratory/Chest: positive: Lungs Clear, Normal Breath Sounds. negative: Respiratory Distress Cardiovascular: positive: Regular Rate, S1, S2 Gastrointestinal/Abdominal: positive: Soft. negative: Tender, Pulsatile Mass Extremity: positive: Normal Inspection. 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 negative: Facial Droop, Confused, Disoriented (no nystagmus, Varun intact, no drift) ED Treatment Course - LABORATORY CBC & Chemistry Diagram: 07/08/17 12:45 07/08/17 12:45 - ADDITIONAL ORDERS Additional order review: 07/08/17 12:45 RBC 5.07 MCV 90.7 MCHC 32.9 RDW 14.5 MPV 10.0 D Neutrophils % 47.8 D Lymphocytes % 38.8 D Monocytes % 10.4 H Eosinophils % 1.7 Basophils % 1.3 - RADIOLOGY Radiology Studies Ordered: Category Date Time Status CHEST X-RAY PORTABLE* [RAD] Stat Radiology 07/08/17 12:43 Taken Medical Decision Making - Medical Decision Making 07/08/17 13:26 76 yo F, h/o HTN on multiple meds, HLD, breast ca, BIB family for elevated BP. States BP was elevated 5 days ago but does not remember number. Unclear as to why pt did not come to ED then. Today felt mild general weakness, no KUMAR, dizziness, visual changes, focal weakness, CP, SOB or edema. States she is compliant w/ her diovan and hydralazine. No recent change in dosage. See exam Elevated BP Reports compliance with meds w/ no recent adjustment C/o gen weakness only No CP/SOB Well jez w/ BP of 208/93 w/ chest/lungs clear and non-focal -ekg/labs -manage BP in ER 07/08/17 15:20 Chest x-ray read as cardiomegaly. Labs unremarkable except for mild bump in creatinine to 1.1 with K of 5.6. EKG w/ sinus badray @55 BPM. No need to tx mild hyperK per ED attg. Will give extra dose of hydralazine at this time and reassess as per d/w . 07/08/17 15:50 BP 189/90. Pt states she feels better w/ IVF. Will contact PMD to discuss dispo 07/08/17 16:42 07/08/17 16:54 BP now 180/75 on monitor. Have not yet heard back from Dr. Oleary, patient's PMD. Pending to be evaluated by ED attg who will decide disposition 07/08/17 17:32 Pt evaluated by ED attending, who states patient can be discharged. I had lengthy discussion with patient and family members regarding the danger of reducing blood pressure too fast and too low. I explained to family that patient needs further management of her BP and that they should contact Dr. Oleary in the a.m. for further recommendation/management. Strict return precautions given. Family feels safe taking patient home 07/08/17 17:36 *DC/Admit/Observation/Transfer Diagnosis at time of Disposition: Elevated blood pressure reading - Discharge Dispostion Disposition: HOME Condition at time of disposition: Improved - Referrals Referrals: Garrett Oleary [Primary Care Provider] - - Patient Instructions Printed Discharge Instructions: DI for High Blood Pressure, How to Monitor Your Blood Pressure at Home Additional Instructions: Necesita ms control de [place]lisle presin arterial. Contine tomando los medicamentos recetados y llame al Dr. Alvarado a primera hora de la maana para recibir ms recomendaciones / administracin. Si desarrolla dolor de tom, cambios en la visin, vmitos, debilidad en un lado de [place] cuerpo, dolor en el pecho o dificultad para respirar, regrese a la sophia de emergencia de inmediato Print Language: SAUDI ARABIAN - Post Discharge Activity
[2017-07-08 13:27] LABS: ALK PHOS 73 U/L (45-117); N-TERMINAL BNP 172.07 pg/ml (5-450)
[2017-07-08 13:32] LABS: POTASSIUM 5.6 mmol/L (3.5-5.1); SGOT/AST 27 U/L (15-37)
--- NOTE | 2017-07-08 13:58 | EKG ---
Test Reason : Blood Pressure : / mmHG Vent. Rate : 055 BPM Atrial Rate : 055 BPM P-R Int : 174 ms QRS Dur : 084 ms QT Int : 430 ms P-R-T Axes : 041 -36 016 degrees QTc Int : 411 ms SINUS BRADYCARDIA LEFT AXIS DEVIATION POSSIBLE ANTERIOR INFARCT , AGE UNDETERMINED ABNORMAL ECG WHEN COMPARED WITH ECG OF 14-AUG-2016 14:59, NO SIGNIFICANT CHANGE WAS FOUND Confirmed by ADRIANA DUMONT, TEJA ([id number]) on 07/08/2017 1:58:32 PM Referred By: Confirmed By:TEJA WRIGHT MD
[2017-07-08] MEDS ORDERED: hydrALAZINE HCL 50 MG TABLET (FP) PO ONE (14:03)
[2017-07-08] MEDS ORDERED: SODIUM CHLORIDE 500 ML IV STA (14:07)
[2017-07-08] MEDS ORDERED: HYDROCHLOROTHIAZIDE 25 MG TABLET (FP) ONE (14:36)
[2017-07-08] MEDS ORDERED: hydrALAZINE HCL 25 MG TABLET (FP) ONE (14:37)
[2017-07-08 17:15] VITALS: PULSE 55
[2017-07-08 17:23] LABS: URINE APPEARANCE CLEAR; URINE BILIRUBIN NEGATIVE (NEGATIVE); URINE COLOR STRAW; URINE GLUCOSE (UA) NEGATIVE (NEGATIVE); URINE KETONE NEGATIVE (NEGATIVE); URINE LEUK ESTERASE NEGATIVE (NEGATIVE); URINE NITRITE NEGATIVE (NEGATIVE); URINE PROTEIN NEGATIVE (NEGATIVE); URINE UROBILINOGEN NEGATIVE mg/dL (0.2-1.0)
[2017-07-08 17:58] VITALS: BP 189/89; TEMP 97.9
--- NOTE | 2017-07-16 08:24 | EKG ---
Test Reason : Blood Pressure : / mmHG Vent. Rate : 045 BPM Atrial Rate : 045 BPM P-R Int : 180 ms QRS Dur : 090 ms QT Int : 464 ms P-R-T Axes : 027 -31 020 degrees QTc Int : 401 ms SINUS BRADYCARDIA LEFT AXIS DEVIATION ABNORMAL ECG WHEN COMPARED WITH ECG OF 08-JUL-2017 12:42, NO SIGNIFICANT CHANGE WAS FOUND Confirmed by TEJA WRIGHT MD ([id number]) on 07/16/2017 8:24:09 AM Referred By: Confirmed By:TEJA WRIGHT MD
== END 2017-07-08 17:53 | disposition home or self-care (01) ==
LOC: JER 11:23
PROC: 3E0337Z Introduction of Electrolytic and Water Balance Substance into Peripheral Vein, Percutaneous Approach (ICD-10-PCS; principal; 2017-07-08)
DX: R03.0 Elevated blood-pressure reading, without diagnosis of hypertension (principal); Z85.3 Personal history of malignant neoplasm of breast; J44.9 Chronic obstructive pulmonary disease, unspecified; I10 Essential (primary) hypertension; E78.00 Pure hypercholesterolemia, unspecified
CPT/HCPCS: 36415; 71045-TC-FY; 80053; 81003; 82550; 83880; 84484; 85025; 87086; 93005; 93010; 96360; 99285-25

== ENCOUNTER 2020-05-03 14:50 | Inpatient (IN) | payer OTHER ==
[2020-05-03 17:21] LABS: BASO % 0.6 % (0-2.0); HEMATOCRIT 37.3 % (32.4-45.2); HEMOGLOBIN 12.2 GM/dL (10.7-15.3); LYMPH % 13.1 % (8-40); MCH 28.2 pg (25.7-33.7); MCHC 32.6 g/dl (32.0-36.0); MEAN CELL VOLUME 86.3 fl (80-96); MEAN PLT VOLUME 8.5 fl (7.5-11.1); MONO % 9.2 % (3.8-10.2); NEUT % 77.1 % (42.8-82.8); PLATELET COUNT 250 K/MM3 (134-434); RBC 4.32 M/mm3 (3.60-5.2); RDW 13.8 % (11.6-15.6); WHITE BLOOD COUNT 5.6 K/mm3 (4.0-10.0)
[2020-05-03] MEDS ORDERED: CEFTRIAXONE 1,000 MG in DEXTROSE 5%-WATER - 50 ML IVPB ONE (17:32)
[2020-05-03] MEDS ORDERED: AZITHROMYCIN IVPB 500 MG in DEXTROSE 5%-WATER - 250 ML IVPB ONE (17:33)
[2020-05-03 17:43] LABS: CHLORIDE 104 mmol/L (98-107); POTASSIUM 4.5 mmol/L (3.5-5.1); SODIUM 136 mmol/L (136-145)
[2020-05-03 17:45] LABS: CALCIUM 8.2 mg/dL (8.5-10.1)
[2020-05-03] MEDS ORDERED: CEFTRIAXONE 1 GM/50 ML BAG ONE (17:45)
[2020-05-03 17:46] LABS: ALBUMIN 2.8 g/dl (3.4-5.0); ANION GAP 7 MMOL/L (8-16); BLOOD UREA NITROGEN 23.1 mg/dL (7-18); CO2 24 mmol/L (21-32); GLUCOSE,RANDOM 164 mg/dL (74-106)
[2020-05-03 17:46] LABS: INR 1.05 (0.83-1.09); PROTHROMBIN TIME (PATIENT) 12.7 SEC (9.7-13.0)
[2020-05-03] MEDS ORDERED: AZITHROMYCIN IVPB 500 MG/250 ML BAG IVPB ONE (17:46)
[2020-05-03 17:49] LABS: ACTIVATED PTT 32.5 SECONDS (25.2-36.5)
[2020-05-03 17:49] LABS: CREATININE 1.2 mg/dL (0.55-1.3); SGOT/AST 54 U/L (15-37); SGPT/ALT 49 U/L (13-61)
[2020-05-03 17:51] LABS: BILIRUBIN,TOTAL 0.4 mg/dL (0.2-1)
[2020-05-03 17:52] LABS: ALK PHOS 77 U/L (45-117); LDH 382 U/L (84-246)
[2020-05-03] MEDS ORDERED: SODIUM CHLORIDE 500 ML IV STA (20:07)
[2020-05-03] MEDS ORDERED: DEXAMETHASONE SOD PHOSPHATE 4 MG/1 ML VIAL IVPUSH ONE (21:12)
[2020-05-03] MEDS ORDERED: DEXAMETHASONE SOD PHOSPHATE 10 MG/1 ML VIAL ONE (21:33)
[2020-05-03] MEDS ORDERED: FAMOTIDINE 20 MG TABLET PO SCH (22:00)
[2020-05-03] MEDS ORDERED: ASCORBIC ACID 500 MG TABLET (FP) ONE (22:13)
[2020-05-03] MEDS: ASCORBIC ACID 500 MG TABLET (FP) PO SCH (22:23)
[2020-05-04] MEDS ORDERED: ALBUTEROL SO4 HFA INHALER IH PRN (02:35)
[2020-05-04 03:12] VITALS: BMI 32.8
[2020-05-04 09:13] LABS: BASO % 0.3 % (0-2.0); HEMATOCRIT 39.7 % (32.4-45.2); HEMOGLOBIN 12.9 GM/dL (10.7-15.3); LYMPH % 13.9 % (8-40); MCH 28.4 pg (25.7-33.7); MCHC 32.6 g/dl (32.0-36.0); MEAN CELL VOLUME 87.2 fl (80-96); MEAN PLT VOLUME 8.4 fl (7.5-11.1); MONO % 5.5 % (3.8-10.2); NEUT % 80.3 % (42.8-82.8); PLATELET COUNT 238 K/MM3 (134-434); RBC 4.55 M/mm3 (3.60-5.2); RDW 13.9 % (11.6-15.6); WHITE BLOOD COUNT 4.9 K/mm3 (4.0-10.0)
[2020-05-04 09:29] LABS: CALCIUM 8.2 mg/dL (8.5-10.1)
[2020-05-04 09:30] LABS: ALBUMIN 2.6 g/dl (3.4-5.0); BLOOD UREA NITROGEN 20.3 mg/dL (7-18)
[2020-05-04 09:31] LABS: MAGNESIUM 2.3 mg/dL (1.8-2.4)
[2020-05-04 09:33] LABS: PHOSPHOROUS 3.3 mg/dL (2.5-4.9)
[2020-05-04 09:34] LABS: BILIRUBIN,TOTAL 0.6 mg/dL (0.2-1)
[2020-05-04] MEDS ORDERED: CEFTRIAXONE 1 GM in DEXTROSE 5%-WATER - 50 ML IVPB SCH (10:00)
[2020-05-04] MEDS ORDERED: AZITHROMYCIN IVPB 500 MG/250 ML BAG IVPB SCH (10:00)
[2020-05-04] MEDS ORDERED: ENOXAPARIN NA (PORCINE) 40 MG/0.4 ML DISP.SYRIN SQ SCH (10:00)
[2020-05-04] MEDS: NEBIVOLOL 10 MG TABLET (FP) PO SCH (10:34)
[2020-05-04] MEDS: ZINC SULFATE 220 MG CAPSULE (FP) PO SCH (10:34)
[2020-05-04] MEDS: ASCORBIC ACID 500 MG TABLET (FP) PO SCH ×2 (10:34→22:09)
[2020-05-04] MEDS: VALSARTAN 160 MG TABLET PO SCH (10:34)
[2020-05-04] MEDS: CHOLECALCIFEROL (VIT D3) 1,000 UNIT (25 MCG) TABLET PO SCH (10:34)
[2020-05-04] MEDS: DEXAMETHASONE SOD PHOSPHATE 10 MG/1 ML VIAL IVPUSH SCH (10:35)
[2020-05-04] MEDS: ASPIRIN 81 MG CHEWABLE TABLETS PO SCH (10:35)
[2020-05-04] MEDS ORDERED: REMDESIVIR 200 MG in SODIUM CHLORIDE 210 ML IVPB ONE (11:00)
[2020-05-04 16:00] LABS: EPI CELLS 17 /uL (0-25.1); HYALINE CASTS 7 /uL (0-3.1); URINE APPEARANCE CLEAR; URINE BACTERIA 25 /uL (0-1359); URINE BILIRUBIN NEGATIVE (NEGATIVE); URINE COLOR YELLOW; URINE GLUCOSE (UA) 1+ (NEGATIVE); URINE KETONE TRACE (NEGATIVE); URINE LEUK ESTERASE NEGATIVE (NEGATIVE); URINE NITRITE NEGATIVE (NEGATIVE); URINE PROTEIN 2+ (NEGATIVE); URINE RBC 3 /uL (0-23.9); URINE UROBILINOGEN 0.2 mg/dL (0.2-1.0); URINE WBC 8 /uL (0-25.8)
[2020-05-04] MEDS: hydrALAZINE HCL 50 MG TABLET (FP) PO SCH ×2 (16:03→22:09)
[2020-05-04 19:04] LABS: URINE CRYSTALS MODERATE /hpf
[2020-05-05] MEDS: ASPIRIN 81 MG CHEWABLE TABLETS PO SCH (09:53)
[2020-05-05] MEDS: VALSARTAN 160 MG TABLET PO SCH (09:53)
[2020-05-05] MEDS: ASCORBIC ACID 500 MG TABLET (FP) PO SCH ×2 (09:53→21:18)
[2020-05-05] MEDS: NEBIVOLOL 10 MG TABLET (FP) PO SCH (09:53)
[2020-05-05] MEDS: DEXAMETHASONE SOD PHOSPHATE 10 MG/1 ML VIAL IVPUSH SCH (09:54)
[2020-05-05] MEDS: hydrALAZINE HCL 50 MG TABLET (FP) PO SCH ×2 (09:54→21:21)
[2020-05-05] MEDS: ZINC SULFATE 220 MG CAPSULE (FP) PO SCH (09:54)
[2020-05-05] MEDS: CHOLECALCIFEROL (VIT D3) 1,000 UNIT (25 MCG) TABLET PO SCH (09:54)
[2020-05-05] MEDS: ENOXAPARIN NA (PORCINE) 80 MG/0.8 ML DISP.SYRIN SQ SCH ×2 (09:54→21:18)
[2020-05-05] MEDS: REMDESIVIR 100 MG in SODIUM CHLORIDE 230 ML IVPB SCH (10:13)
[2020-05-05 12:12] LABS: HEMATOCRIT 36.3 % (32.4-45.2); HEMOGLOBIN 11.8 GM/dL (10.7-15.3); MCH 27.8 pg (25.7-33.7); MCHC 32.5 g/dl (32.0-36.0); MEAN CELL VOLUME 85.8 fl (80-96); MEAN PLT VOLUME 8.6 fl (7.5-11.1); PLATELET COUNT 308 K/MM3 (134-434); RBC 4.23 M/mm3 (3.60-5.2); RDW 13.8 % (11.6-15.6); WHITE BLOOD COUNT 11.7 K/mm3 (4.0-10.0)
[2020-05-05 12:40] LABS: POTASSIUM 4.9 mmol/L (3.5-5.1)
[2020-05-05 12:43] LABS: ALBUMIN 2.3 g/dl (3.4-5.0); CALCIUM 7.9 mg/dL (8.5-10.1)
[2020-05-05 12:48] LABS: BILIRUBIN,TOTAL 0.9 mg/dL (0.2-1); TOT PROT 6.4 g/dl (6.4-8.2)
[2020-05-06] MEDS: CHOLECALCIFEROL (VIT D3) 1,000 UNIT (25 MCG) TABLET PO SCH (10:09)
[2020-05-06] MEDS: ASPIRIN 81 MG CHEWABLE TABLETS PO SCH (10:10)
[2020-05-06] MEDS: ASCORBIC ACID 500 MG TABLET (FP) PO SCH ×2 (10:10→22:50)
[2020-05-06] MEDS: DEXAMETHASONE SOD PHOSPHATE 10 MG/1 ML VIAL IVPUSH SCH (10:10)
[2020-05-06] MEDS: ZINC SULFATE 220 MG CAPSULE (FP) PO SCH (10:10)
[2020-05-06] MEDS: ENOXAPARIN NA (PORCINE) 80 MG/0.8 ML DISP.SYRIN SQ SCH ×2 (10:11→22:53)
[2020-05-06] MEDS: hydrALAZINE HCL 50 MG TABLET (FP) PO SCH ×2 (10:11→22:50)
[2020-05-06] MEDS: VALSARTAN 160 MG TABLET PO SCH (10:32)
[2020-05-06] MEDS: NEBIVOLOL 10 MG TABLET (FP) PO SCH (10:32)
[2020-05-06] MEDS: REMDESIVIR 100 MG in SODIUM CHLORIDE 230 ML IVPB SCH (10:33)
[2020-05-06 11:52] LABS: BASO % 0.3 % (0-2.0); HEMATOCRIT 35.9 % (32.4-45.2); HEMOGLOBIN 11.8 GM/dL (10.7-15.3); LYMPH % 4.3 % (8-40); MCH 28.2 pg (25.7-33.7); MCHC 32.7 g/dl (32.0-36.0); MEAN CELL VOLUME 86.2 fl (80-96); MEAN PLT VOLUME 8.4 fl (7.5-11.1); MONO % 4.9 % (3.8-10.2); NEUT % 90.5 % (42.8-82.8); PLATELET COUNT 321 K/MM3 (134-434); RBC 4.17 M/mm3 (3.60-5.2); RDW 13.8 % (11.6-15.6); WHITE BLOOD COUNT 10.7 K/mm3 (4.0-10.0)
[2020-05-06 12:06] LABS: ARTERIAL BLD GAS O2 SATURATION 89.1 mmHg (95-98); ARTERIAL BLOOD GAS BASE EXCESS 1.1 mmol/L (-2-2); ARTERIAL BLOOD GAS PO2 52.3 mmHg (80-100); ARTERIAL BLOOD GAS pH 7.461 (7.350-7.450)
[2020-05-06 12:07] LABS: POTASSIUM 4.9 mmol/L (3.5-5.1)
[2020-05-06 12:09] LABS: ALLENS TEST POSITIVE
[2020-05-06 12:12] LABS: CALCIUM 8.5 mg/dL (8.5-10.1)
[2020-05-06 12:13] LABS: ALBUMIN 2.4 g/dl (3.4-5.0); BLOOD UREA NITROGEN 23.3 mg/dL (7-18)
[2020-05-06 12:17] LABS: BILIRUBIN,TOTAL 0.6 mg/dL (0.2-1)
[2020-05-06 12:18] LABS: TOT PROT 6.6 g/dl (6.4-8.2)
[2020-05-06 12:43] LABS: ANISOCYTOSIS 2+; OVALOCYTE 1+
[2020-05-06] MEDS ORDERED: FUROSEMIDE 40 MG/4 ML INJECTABLE VIAL IVPUSH ONE (13:00)
[2020-05-06] MEDS ORDERED: FUROSEMIDE 40 MG/4 ML INJECTABLE VIAL ONE (13:57)
[2020-05-06] MEDS: FAMOTIDINE 20 MG TABLET PO SCH (22:51)
[2020-05-07] MEDS: ENOXAPARIN NA (PORCINE) 80 MG/0.8 ML DISP.SYRIN SQ SCH ×2 (09:23→22:56)
[2020-05-07] MEDS: NEBIVOLOL 10 MG TABLET (FP) PO SCH (09:24)
[2020-05-07] MEDS: ASPIRIN 81 MG CHEWABLE TABLETS PO SCH (09:24)
[2020-05-07] MEDS: DEXAMETHASONE SOD PHOSPHATE 10 MG/1 ML VIAL IVPUSH SCH (09:24)
[2020-05-07] MEDS: hydrALAZINE HCL 50 MG TABLET (FP) PO SCH ×2 (09:25→22:56)
[2020-05-07] MEDS: ASCORBIC ACID 500 MG TABLET (FP) PO SCH ×2 (09:25→22:56)
[2020-05-07] MEDS: CHOLECALCIFEROL (VIT D3) 1,000 UNIT (25 MCG) TABLET PO SCH (09:25)
[2020-05-07] MEDS: FAMOTIDINE 20 MG TABLET PO SCH (09:25)
[2020-05-07] MEDS: ZINC SULFATE 220 MG CAPSULE (FP) PO SCH (09:25)
[2020-05-07 09:50] LABS: BASO % 0.5 % (0-2.0); LYMPH % 3.9 % (8-40); MCH 27.9 pg (25.7-33.7); MCHC 32.5 g/dl (32.0-36.0); MEAN CELL VOLUME 85.9 fl (80-96); MONO % 4.2 % (3.8-10.2); NEUT % 91.4 % (42.8-82.8); PLATELET COUNT 329 K/MM3 (134-434); RBC 4.66 M/mm3 (3.60-5.2); RDW 14.1 % (11.6-15.6); WHITE BLOOD COUNT 12.8 K/mm3 (4.0-10.0)
[2020-05-07 10:18] LABS: POTASSIUM 4.9 mmol/L (3.5-5.1)
[2020-05-07 10:22] LABS: ALBUMIN 2.6 g/dl (3.4-5.0); BLOOD UREA NITROGEN 29.8 mg/dL (7-18)
[2020-05-07 10:23] LABS: CALCIUM 8.8 mg/dL (8.5-10.1)
[2020-05-07 10:25] LABS: MAGNESIUM 2.1 mg/dL (1.8-2.4)
[2020-05-07 10:26] LABS: PHOSPHOROUS 2.8 mg/dL (2.5-4.9)
[2020-05-07 10:27] LABS: BILIRUBIN,TOTAL 1.4 mg/dL (0.2-1); TOT PROT 7.1 g/dl (6.4-8.2)
[2020-05-07 10:30] LABS: CREATININE 0.9 mg/dL (0.55-1.3)
[2020-05-07] MEDS: REMDESIVIR 100 MG in SODIUM CHLORIDE 230 ML IVPB SCH (10:34)
[2020-05-07 11:10] LABS: ARTERIAL BLD GAS O2 SATURATION 91.4 mmHg (95-98); ARTERIAL BLOOD GAS BASE EXCESS 3.3 mmol/L (-2-2); ARTERIAL BLOOD GAS PO2 56.7 mmHg (80-100); ARTERIAL BLOOD GAS pH 7.475 (7.350-7.450)
[2020-05-07 11:11] LABS: ALLENS TEST POSITIVE
[2020-05-07 13:02] LABS: ANISOCYTOSIS 1+; MACROCYTOSIS 0; OVALOCYTE 1+; PLATELET ESTIMATE NORMAL; TEAR DROP CELLS 1+
[2020-05-08 09:09] LABS: BASO % 0.8 % (0-2.0); HEMATOCRIT 36.2 % (32.4-45.2); HEMOGLOBIN 11.8 GM/dL (10.7-15.3); LYMPH % 2.8 % (8-40); MCH 27.9 pg (25.7-33.7); MCHC 32.6 g/dl (32.0-36.0); MEAN CELL VOLUME 85.5 fl (80-96); MONO % 4.5 % (3.8-10.2); NEUT % 91.9 % (42.8-82.8); PLATELET COUNT 346 K/MM3 (134-434); RBC 4.23 M/mm3 (3.60-5.2); RDW 14.1 % (11.6-15.6)
[2020-05-08 09:29] LABS: POTASSIUM 4.9 mmol/L (3.5-5.1)
[2020-05-08] MEDS: hydrALAZINE HCL 50 MG TABLET (FP) PO SCH ×2 (09:32→22:23)
[2020-05-08] MEDS: ZINC SULFATE 220 MG CAPSULE (FP) PO SCH (09:32)
[2020-05-08] MEDS: ASPIRIN 81 MG CHEWABLE TABLETS PO SCH (09:32)
[2020-05-08] MEDS: FAMOTIDINE 20 MG TABLET PO SCH (09:32)
[2020-05-08] MEDS: CHOLECALCIFEROL (VIT D3) 1,000 UNIT (25 MCG) TABLET PO SCH (09:32)
[2020-05-08] MEDS: ASCORBIC ACID 500 MG TABLET (FP) PO SCH ×2 (09:32→22:23)
[2020-05-08] MEDS: DEXAMETHASONE SOD PHOSPHATE 10 MG/1 ML VIAL IVPUSH SCH (09:33)
[2020-05-08] MEDS: NEBIVOLOL 10 MG TABLET (FP) PO SCH (09:34)
[2020-05-08] MEDS: ENOXAPARIN NA (PORCINE) 80 MG/0.8 ML DISP.SYRIN SQ SCH ×2 (09:35→22:23)
[2020-05-08 09:38] LABS: ALBUMIN 2.3 g/dl (3.4-5.0)
[2020-05-08 09:39] LABS: BLOOD UREA NITROGEN 32.8 mg/dL (7-18); CALCIUM 8.6 mg/dL (8.5-10.1)
[2020-05-08 09:40] LABS: MAGNESIUM 2.3 mg/dL (1.8-2.4)
[2020-05-08 09:42] LABS: CREATININE 1.1 mg/dL (0.55-1.3); PHOSPHOROUS 3.2 mg/dL (2.5-4.9)
[2020-05-08 09:43] LABS: BILIRUBIN,TOTAL 0.7 mg/dL (0.2-1); TOT PROT 6.3 g/dl (6.4-8.2)
[2020-05-08] MEDS: REMDESIVIR 100 MG in SODIUM CHLORIDE 230 ML IVPB SCH (11:15)
[2020-05-08 14:03] LABS: ANISOCYTOSIS 3+; MACROCYTOSIS 0; PLATELET ESTIMATE NORMAL
[2020-05-08] MEDS: INSULIN SLIDING SCALE (NOVOLOG) 1 VIAL SQ SCH (22:27)
[2020-05-09] MEDS: INSULIN SLIDING SCALE (NOVOLOG) 1 VIAL SQ SCH ×4 (07:15→22:42)
[2020-05-09 08:40] LABS: HEMATOCRIT 37.8 % (32.4-45.2); HEMOGLOBIN 12.3 GM/dL (10.7-15.3); MCH 27.8 pg (25.7-33.7); MCHC 32.6 g/dl (32.0-36.0); MEAN CELL VOLUME 85.1 fl (80-96); MEAN PLT VOLUME 8.8 fl (7.5-11.1); PLATELET COUNT 396 K/MM3 (134-434); RBC 4.44 M/mm3 (3.60-5.2); RDW 13.9 % (11.6-15.6)
[2020-05-09 09:07] LABS: POTASSIUM 4.8 mmol/L (3.5-5.1)
[2020-05-09 09:09] LABS: BLOOD UREA NITROGEN 27.4 mg/dL (7-18); CALCIUM 9.1 mg/dL (8.5-10.1)
[2020-05-09 09:10] LABS: ALBUMIN 2.3 g/dl (3.4-5.0); MAGNESIUM 2.4 mg/dL (1.8-2.4)
[2020-05-09 09:12] LABS: CREATININE 0.9 mg/dL (0.55-1.3); PHOSPHOROUS 3.2 mg/dL (2.5-4.9)
[2020-05-09 09:14] LABS: BILIRUBIN,TOTAL 0.5 mg/dL (0.2-1); TOT PROT 6.5 g/dl (6.4-8.2)
[2020-05-09] MEDS: ASPIRIN 81 MG CHEWABLE TABLETS PO SCH (09:51)
[2020-05-09] MEDS: ASCORBIC ACID 500 MG TABLET (FP) PO SCH ×2 (09:51→22:33)
[2020-05-09] MEDS: ZINC SULFATE 220 MG CAPSULE (FP) PO SCH (09:51)
[2020-05-09] MEDS: NEBIVOLOL 10 MG TABLET (FP) PO SCH (09:51)
[2020-05-09] MEDS: FAMOTIDINE 20 MG TABLET PO SCH (09:52)
[2020-05-09] MEDS: ENOXAPARIN NA (PORCINE) 80 MG/0.8 ML DISP.SYRIN SQ SCH ×2 (09:52→22:33)
[2020-05-09] MEDS: CHOLECALCIFEROL (VIT D3) 1,000 UNIT (25 MCG) TABLET PO SCH (09:52)
[2020-05-09] MEDS: DEXAMETHASONE SOD PHOSPHATE 10 MG/1 ML VIAL IVPUSH SCH (09:52)
[2020-05-09] MEDS: hydrALAZINE HCL 50 MG TABLET (FP) PO SCH ×2 (09:52→22:33)
[2020-05-09 12:17] LABS: ANISOCYTOSIS 0; MACROCYTOSIS 0; OVALOCYTE 1+; PLATELET ESTIMATE NORMAL
[2020-05-09] MEDS ORDERED: TOCILIZUMAB (ACTEMRA) 200 MG/10 ML VIAL IVPB ONE (12:43)
[2020-05-09] MEDS ORDERED: TOCILIZUMAB IVPB ONE (14:00)
[2020-05-09] MEDS ORDERED: SODIUM CHLORIDE IVPB ONE (14:00)
[2020-05-10] MEDS: INSULIN SLIDING SCALE (NOVOLOG) 1 VIAL SQ SCH ×4 (06:22→22:47)
[2020-05-10 10:03] LABS: HEMOGLOBIN 12.7 GM/dL (10.7-15.3); LYMPH % 3.2 % (8-40); MCH 27.7 pg (25.7-33.7); MCHC 32.6 g/dl (32.0-36.0); MEAN CELL VOLUME 84.8 fl (80-96); MEAN PLT VOLUME 8.7 fl (7.5-11.1); MONO % 3.6 % (3.8-10.2); NEUT % 93.2 % (42.8-82.8); PLATELET COUNT 423 K/MM3 (134-434); WHITE BLOOD COUNT 7.9 K/mm3 (4.0-10.0)
[2020-05-10 10:25] LABS: POTASSIUM 4.8 mmol/L (3.5-5.1)
[2020-05-10 10:26] LABS: CALCIUM 8.9 mg/dL (8.5-10.1)
[2020-05-10 10:28] LABS: ALBUMIN 2.2 g/dl (3.4-5.0); BLOOD UREA NITROGEN 28.3 mg/dL (7-18); MAGNESIUM 2.4 mg/dL (1.8-2.4)
[2020-05-10 10:30] LABS: CREATININE 0.9 mg/dL (0.55-1.3); PHOSPHOROUS 3.7 mg/dL (2.5-4.9)
[2020-05-10 10:32] LABS: TOT PROT 6.6 g/dl (6.4-8.2)
[2020-05-10 10:34] LABS: BILIRUBIN,TOTAL 0.5 mg/dL (0.2-1)
[2020-05-10] MEDS: FAMOTIDINE 20 MG TABLET PO SCH (10:41)
[2020-05-10] MEDS: ENOXAPARIN NA (PORCINE) 80 MG/0.8 ML DISP.SYRIN SQ SCH ×2 (10:41→22:40)
[2020-05-10] MEDS: ASPIRIN 81 MG CHEWABLE TABLETS PO SCH (10:41)
[2020-05-10] MEDS: ASCORBIC ACID 500 MG TABLET (FP) PO SCH ×2 (10:42→22:41)
[2020-05-10] MEDS: hydrALAZINE HCL 50 MG TABLET (FP) PO SCH ×2 (10:42→22:40)
[2020-05-10] MEDS: ZINC SULFATE 220 MG CAPSULE (FP) PO SCH (10:42)
[2020-05-10] MEDS: DEXAMETHASONE SOD PHOSPHATE 10 MG/1 ML VIAL IVPUSH SCH (10:42)
[2020-05-10] MEDS: CHOLECALCIFEROL (VIT D3) 1,000 UNIT (25 MCG) TABLET PO SCH (10:42)
[2020-05-10 12:21] LABS: ANISOCYTOSIS 2+; MACROCYTOSIS 0; PLATELET ESTIMATE NORMAL; TARGET CELLS 1+
[2020-05-11] MEDS: INSULIN SLIDING SCALE (NOVOLOG) 1 VIAL SQ SCH ×4 (06:29→21:07)
[2020-05-11 08:40] LABS: BASO % 0.4 % (0-2.0); HEMATOCRIT 40.4 % (32.4-45.2); HEMOGLOBIN 13.3 GM/dL (10.7-15.3); LYMPH % 2.2 % (8-40); MCH 28.1 pg (25.7-33.7); MCHC 32.9 g/dl (32.0-36.0); MEAN CELL VOLUME 85.5 fl (80-96); MEAN PLT VOLUME 8.8 fl (7.5-11.1); MONO % 4.1 % (3.8-10.2); NEUT % 93.3 % (42.8-82.8); PLATELET COUNT 439 K/MM3 (134-434); RBC 4.73 M/mm3 (3.60-5.2); WHITE BLOOD COUNT 8.6 K/mm3 (4.0-10.0)
[2020-05-11 08:54] LABS: POTASSIUM 4.9 mmol/L (3.5-5.1)
[2020-05-11 09:19] LABS: ALBUMIN 2.3 g/dl (3.4-5.0); BLOOD UREA NITROGEN 30.9 mg/dL (7-18); CALCIUM 8.9 mg/dL (8.5-10.1)
[2020-05-11 09:20] LABS: MAGNESIUM 2.4 mg/dL (1.8-2.4)
[2020-05-11 09:23] LABS: CREATININE 0.9 mg/dL (0.55-1.3); PHOSPHOROUS 4.1 mg/dL (2.5-4.9)
[2020-05-11 09:24] LABS: BILIRUBIN,TOTAL 0.5 mg/dL (0.2-1); TOT PROT 6.4 g/dl (6.4-8.2)
[2020-05-11] MEDS: hydrALAZINE HCL 50 MG TABLET (FP) PO SCH ×3 (10:32→21:02)
[2020-05-11] MEDS: FAMOTIDINE 20 MG TABLET PO SCH (10:32)
[2020-05-11] MEDS: ASCORBIC ACID 500 MG TABLET (FP) PO SCH ×2 (10:32→21:01)
[2020-05-11] MEDS: ZINC SULFATE 220 MG CAPSULE (FP) PO SCH (10:32)
[2020-05-11] MEDS: ASPIRIN 81 MG CHEWABLE TABLETS PO SCH (10:32)
[2020-05-11] MEDS: CHOLECALCIFEROL (VIT D3) 1,000 UNIT (25 MCG) TABLET PO SCH (10:32)
[2020-05-11] MEDS: ENOXAPARIN NA (PORCINE) 80 MG/0.8 ML DISP.SYRIN SQ SCH ×2 (10:33→21:02)
[2020-05-11] MEDS: DEXAMETHASONE SOD PHOSPHATE 10 MG/1 ML VIAL IVPUSH SCH (11:36)
[2020-05-11 12:37] LABS: ANISOCYTOSIS 1+; MACROCYTOSIS 0; PLATELET ESTIMATE NORMAL; TEAR DROP CELLS 1+
[2020-05-11] MEDS ORDERED: LORazepam 2 MG/ML SDV VIAL ONE (18:24)
[2020-05-11] MEDS: LORazepam 2 MG/ML SDV VIAL IVPUSH PRN (18:35)
[2020-05-12] MEDS: LORazepam 2 MG/ML SDV VIAL IVPUSH PRN (05:49)
[2020-05-12] MEDS: hydrALAZINE HCL 50 MG TABLET (FP) PO SCH (06:10)
[2020-05-12] MEDS: INSULIN SLIDING SCALE (NOVOLOG) 1 VIAL SQ SCH ×2 (06:10→12:21)
[2020-05-12 09:22] VITALS: BP 104/66; TEMP 98.9
[2020-05-12 09:26] LABS: BASO % 0.6 % (0-2.0); EOS % 0.1 % (0-4.5); HEMATOCRIT 44.2 % (32.4-45.2); HEMOGLOBIN 14.2 GM/dL (10.7-15.3); LYMPH % 4.6 % (8-40); MCH 27.5 pg (25.7-33.7); MEAN CELL VOLUME 85.9 fl (80-96); MEAN PLT VOLUME 9.3 fl (7.5-11.1); MONO % 3.4 % (3.8-10.2); NEUT % 91.3 % (42.8-82.8); PLATELET COUNT 475 K/MM3 (134-434); RBC 5.15 M/mm3 (3.60-5.2); RDW 14.1 % (11.6-15.6); WHITE BLOOD COUNT 9.5 K/mm3 (4.0-10.0)
[2020-05-12 09:27] VITALS: PULSE 82
[2020-05-12 09:56] LABS: ALBUMIN 2.4 g/dl (3.4-5.0); CALCIUM 9.3 mg/dL (8.5-10.1)
[2020-05-12 09:57] LABS: BLOOD UREA NITROGEN 39.8 mg/dL (7-18); MAGNESIUM 2.7 mg/dL (1.8-2.4)
[2020-05-12 10:00] LABS: CREATININE 1.1 mg/dL (0.55-1.3); PHOSPHOROUS 3.9 mg/dL (2.5-4.9)
[2020-05-12 10:02] LABS: BILIRUBIN,TOTAL 0.6 mg/dL (0.2-1); TOT PROT 6.2 g/dl (6.4-8.2)
[2020-05-12] MEDS: ASCORBIC ACID 500 MG TABLET (FP) PO SCH (11:03)
[2020-05-12] MEDS: ASPIRIN 81 MG CHEWABLE TABLETS PO SCH (11:03)
[2020-05-12] MEDS: FAMOTIDINE 20 MG TABLET PO SCH (11:03)
[2020-05-12] MEDS: ENOXAPARIN NA (PORCINE) 80 MG/0.8 ML DISP.SYRIN SQ SCH (11:04)
[2020-05-12] MEDS: ZINC SULFATE 220 MG CAPSULE (FP) PO SCH (11:04)
[2020-05-12] MEDS: CHOLECALCIFEROL (VIT D3) 1,000 UNIT (25 MCG) TABLET PO SCH (11:04)
[2020-05-12] MEDS: DEXAMETHASONE SOD PHOSPHATE 10 MG/1 ML VIAL IVPUSH SCH (11:16)
[2020-05-12 12:02] LABS: ANISOCYTOSIS 0; MACROCYTOSIS 0; OVALOCYTE 1+; PLATELET ESTIMATE INCREASED
== END 2020-05-12 19:17 | disposition expired | DRG 177 ==
LOC: JER 14:50 → JERBED 19:40 → J6WEST-2 23:44
PROVIDERS: ADMIT Hospitalist; ATTEND Internal Medicine
PROC: XW033E5 Introduction of Remdesivir Anti-infective into Peripheral Vein, Percutaneous Approach, New Technology Group 5 (ICD-10-PCS; principal; 2020-05-04)
PROC: XW13325 Transfusion of Convalescent Plasma (Nonautologous) into Peripheral Vein, Percutaneous Approach, New Technology Group 5 (ICD-10-PCS; 2020-05-04)
PROC: 5A12012 Performance of Cardiac Output, Single, Manual (ICD-10-PCS; 2020-05-12)
PROC: 5A19054 Respiratory Ventilation, Single, Nonmechanical (ICD-10-PCS; 2020-05-12)
PROC: 06HM33Z Insertion of Infusion Device into Right Femoral Vein, Percutaneous Approach (ICD-10-PCS; 2020-05-12)
PROC: 0CHY7BZ Insertion of Airway into Mouth and Throat, Via Natural or Artificial Opening (ICD-10-PCS; 2020-05-12)
DX: U07.1 COVID-19 (principal); J12.82 Pneumonia due to coronavirus disease 2019; J80 Acute respiratory distress syndrome; I47.1 Supraventricular tachycardia; I10 Essential (primary) hypertension; E78.5 Hyperlipidemia, unspecified; R09.2 Respiratory arrest; Z85.3 Personal history of malignant neoplasm of breast
CPT/HCPCS: 36415; 36430; 36600; 71045-TC-FY; 71046-TC-FY; 80053; 81003; 82550; 82728; 82803; 82962; 83036; 83605; 83615; 83735; 84100; 84484; 85025; 85027; 85379; 85610; 85730; 86140; 86850; 86900; 86901; 87040; 87086; 87426; 87804; 87899; 93005; 93010; 94010; 97162-GP; 99285-25; C9399; J1100; J3262; P9017